=== PATIENT | female | born 1975 | race Caucasian/White ===

== ENCOUNTER → 2016-12-25 | Outpatient (CLI) | payer BC ==
--- NOTE | 2016-12-25 13:07 | Diagnostic Imaging Report ---
INDICATION: Shortness of breath. Portable chest at 11:56 a.m. FINDINGS: Heart size and pulmonary vascularity are normal. Lungs are clear. There are no effusions or pneumothoraces. IMPRESSION: Negative chest. Dictated by: Dictated on workstation # [id number]
== END ==
LOC: RAD 11:24
PROVIDERS: ATTEND Nurse Practitioner Family
DX: R06.02 Shortness of breath (principal)
CPT/HCPCS: 71010

== ENCOUNTER → 2017-07-08 | Outpatient (CLI) | payer BC | LOC: LAB 08:21 | PROVIDERS: ATTEND Obstetrics & Gynecology | DX: R73.02 Impaired glucose tolerance (oral) (principal) | CPT/HCPCS: 36415; 82951; 82952; 82962 ==

== ENCOUNTER 2017-07-29 06:00 | Inpatient (IN) | payer BC ==
[2017-07-29] VITALS (77 sets, daily range): BP systolic 104–167; BP diastolic 53–94
[~2017-07-29] VITALS: Ht 163.8 cm; Wt 90.8 kg
--- OUTSIDE RECORDS SUMMARY | 2017-07-29 06:18 | XMS REPORT | CCD ---
Author Author Auto Generated Organization 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
--- OUTSIDE RECORDS SUMMARY | 2017-07-29 06:18 | XMS REPORT | Continuity of Care Document ---
Author Author [employer] Organization [facility] Address Unknown Phone Unavailable Care Team Providers Care Framing Inspector Name Role Phone [employer] Unavailable Unavailable Problems Problem Status Onset Date Classification Date Reported Comments Source Congenital anomaly of fetus (disorder) Active 07/15/2017 Problem 07/16/2017 [facility] Abnormality of heart (disorder) Active 07/15/2017 Problem 07/16/2017 [facility] High risk (finding) Active 07/15/2017 Problem [facility] Patient currently (finding) Resolved 09/27/2000 Problem 07/16/2017 [facility] Medications Allergies, Adverse Reactions, Alerts Immunizations Results Order Name Results Value Reference Range Date Interpretation Comments Source Health Letter 07/15/2017 [facility] Health Ultrasound 07/15/2017 [facility] Vital Signs Encounters Location Location Details Encounter Type Encounter Number Reason For Visit Attending Provider ADM Date DC Date Status Source [facility] Non Billable [id number] 07/02/2017 07/02/2017 [facility] CLI [id number] Estevan Suero 07/15/2017 07/15/2017 [facility] Procedures Plan of Care Social History Assessment and Plan Family History Value Date Source Advance Directives Order Name Results Value Date Source
--- OUTSIDE RECORDS SUMMARY | 2017-07-29 06:19 | XMS REPORT ---
Author Author JESS MEHTA [facility] e[employer] Address Unknown Phone Unavailable Care Team Providers Care Developer Programmer Analyst Name Role Phone JESS MEHTA CP Unavailable Allergies, Adverse Reactions, Alerts Substance Reaction Event Type N.K.D.A. Info Not Available Non Drug Allergy Problems Problem Type Condition Code Onset Dates Condition Status Assessment Physical exam Z00.00 Active Problem Other disorder of menstruation and other abnormal bleeding from female genital tract 626.8 Active Problem Contact dermatitis and other eczema, due to unspecified cause 692.9 Active Assessment Encounter for immunization Z23 Active Assessment Tobacco abuse Z72.0 Active Problem Screening examination for venereal disease V74.5 Active Problem Screening examination for pulmonary tuberculosis V74.1 Active Problem Encounter for dental examination Z01.20 Active Problem Lymphadenitis, unspecified, except mesenteric 289.3 Active Problem Screening for malignant neoplasm of the cervix V76.2 Active Problem MMR DX V06.4 Active Problem Counseling on substance use and abuse V65.42 Active Medications Medication Code System Code Instructions Start Date End Date Status Dosage Gabapentin [facility] [address]-34 100 MG Orally 3 times a day prn elbow/back pain May 01, 2016 1 capsule Chantix Starting Month [place] [facility] [address]-15 0.5 MG X 11 & 1 MG X 42 Orally June 02, 2016 as directed Procedures Procedure Coding System Code Date SINGLE IMMUNIZATION ADMIN CPT-4 88029 June 02, 2016 Preventive Care Est Pt. Age 40-64 CPT-4 60905 June 02, 2016 HEP B (ADULT) CPT-4 18880 June 02, 2016 Vital Signs Date/Time: June 02, 2016 Cardiac Monitoring Heart Rate 80 bpm Weight 170.4 lbs Height 64 in BMI 29.25 Index Blood Pressure Diastolic 90 mmHg Blood Pressure Systolic 120 mmHg Results No Known Results Immunizations Vaccine Administration Date HEP B (ADULT) June 02, 2016 Summary Purpose [employer]ClinicalWorks Submission
--- OUTSIDE RECORDS SUMMARY | 2017-07-29 06:19 | XMS REPORT | Clinical Summary ---
Author Author [facility] Organization [facility] Address Unknown Phone Unavailable Care Team Providers Care Filer Repairer Name Role Phone PCP Unavailable Source Comments Some departments are not documenting in the electronic medical record. If you do not see the information that you expected, contact Release of Information in the Health Information Management department at [phone] for further assistance in locating additional records.[facility] Allergies Not on File Current Medications Not on file Active Problems Not on file Encounters Date Type Specialty Care Team Description 05/19/2017 Clinical High Risk Screening, , for Support malformation by ultrasound (Primary Dx) from Last 3 Months Social History Tobacco Use Types Packs/Day Years Used Date Never Assessed Sex Assigned at Date Recorded Not on file Last Filed Vital Signs Not on file Plan of Treatment Health Maintenance Due Date Last Done Comments PHYSICAL (COMPREHENSIVE) 1982 EXAM PERTUSSIS VACCINE 1986 TETANUS VACCINE 1992 CERVICAL CANCER SCREENING 2005 BREAST CANCER SCREENING 2015 INFLUENZA VACCINE 07/23/2017 Results * ULTRASOUND [facility] ORDER (05/19/2017) Specimen Performing Laboratory IN CLINIC from Last 3 Months
--- OUTSIDE RECORDS SUMMARY | 2017-07-29 06:19 | XMS REPORT ---
Author Author ALEENA PIERRE Organization [employer] Address Unknown Phone Unavailable Care Team Providers Care Die Machine Operator Name Role Phone ALEENA PIERRE CP Unavailable Allergies No Known Allergies Problems Problem Type Condition Code Onset Dates Condition Status Problem Contact dermatitis and other eczema, due to unspecified cause 692.9 Active Problem Screening for malignant neoplasm of the cervix V76.2 Active Problem Other disorder of menstruation and other abnormal bleeding from female genital tract 626.8 Active Assessment Encounter for immunization Z23 Active Problem Encounter for dental examination Z01.20 Active Problem Screening examination for venereal disease V74.5 Active Problem Anxiety F41.9 Active Problem Counseling on substance use and abuse V65.42 Active Problem Lymphadenitis, unspecified, except mesenteric 289.3 Active Problem Screening examination for pulmonary tuberculosis V74.1 Active Problem MMR DX V06.4 Active Medications No Known Medications Procedures Procedure Coding System Code Date SINGLE IMMUNIZATION ADMIN CPT-4 95675 Sep 03, 2016 FLUARIX QUAD P-FREE 3 AND UP .50 2015 CPT-4 09253 Sep 03, 2016 Results No Known Results Immunizations Vaccine Administration Date FLUARIX QUAD P-FREE 3 AND UP .50 2015Sep 03, 2016 Summary Purpose eClinicalWorks Submission
--- OUTSIDE RECORDS SUMMARY | 2017-07-29 06:19 | XMS REPORT ---
Author Author JESS MEHTA [facility] e[employer] Address Unknown Phone Unavailable Care Team Providers Care Shaker Tender Name Role Phone JESS MEHTA CP Unavailable Allergies No Known Allergies Problems Problem Type Condition Code Onset Dates Condition Status Problem Other disorder of menstruation and other abnormal bleeding from female genital tract 626.8 Active Problem Contact dermatitis and other eczema, due to unspecified cause 692.9 Active Problem Screening examination for venereal disease V74.5 Active Problem Screening examination for pulmonary tuberculosis V74.1 Active Problem Encounter for dental examination Z01.20 Active Problem Lymphadenitis, unspecified, except mesenteric 289.3 Active Problem Screening for malignant neoplasm of the cervix V76.2 Active Problem MMR DX V06.4 Active Problem Counseling on substance use and abuse V65.42 Active Medications No Known Medications Results No Known Results Summary Purpose eClinicalWorks Submission
--- OUTSIDE RECORDS SUMMARY | 2017-07-29 06:19 | XMS REPORT ---
Author Author ISAAC BRUNER [facility] [employer] Address Unknown Phone Unavailable Care Team Providers Care Malted Milk Mixer Name Role Phone ISAAC BRUNER CP Unavailable Allergies No Known Allergies Problems Problem Type Condition Code Onset Dates Condition Status Problem Contact dermatitis and other eczema, due to unspecified cause 692.9 Active Problem Screening for malignant neoplasm of the cervix V76.2 Active Problem Other disorder of menstruation and other abnormal bleeding from female genital tract 626.8 Active Assessment Anxiety F41.9 Active Problem Encounter for dental examination Z01.20 Active Problem Screening examination for venereal disease V74.5 Active Problem Anxiety F41.9 Active Problem Counseling on substance use and abuse V65.42 Active Problem Lymphadenitis, unspecified, except mesenteric 289.3 Active Problem Screening examination for pulmonary tuberculosis V74.1 Active Problem MMR DX V06.4 Active Medications No Known Medications Results No Known Results Summary Purpose eClinicalWorks Submission
--- OUTSIDE RECORDS SUMMARY | 2017-07-29 06:19 | XMS REPORT | Encounter Summary ---
Author Author [facility] Organization [facility] Address Unknown Phone Unavailable Care Team Providers Care Wood Hacker Name Role Phone PCP Unavailable Reason for Visit * Reason Comments Ultrasound Encounter Details Date Type Department Care Team Description 05/19/2017 Clinical [facility] Screening, , for Support Physicians [place] [address] ultrasound (Primary Dx) [place] [address] Social History Tobacco Use Types Packs/Day Years Used Date Never Assessed Sex Assigned at Date Recorded Not on file as of this encounter Progress Notes * Lucero Brown - 05/19/2017 11:15 AM CDT Pamella Petersen presents for an ultrasound encounter. Past Medical, Surgical, Family & Social History; Medications & Allergies contained in the electronic record below were not reviewed today and may not be up-to-date. Please see OBGYN report for all documentation related to this encounter. in this encounter Plan of Treatment Not on fileas of this encounter Results * ULTRASOUND [facility] ORDER (05/19/2017) Specimen Performing Laboratory IN CLINIC in this encounter Visit Diagnoses Diagnosis Screening, , for malformation by ultrasound - Primary Encounter for routine screening for malformation using ultrasonics in this encounter
[2017-07-29] MEDS ORDERED: D5 LR IV SOLUTION 1,000 ML IV ONE (06:27)
[2017-07-29] MEDS ORDERED: MISOPROSTOL 100 MCG (CYTOTEC) TAB PO ONE ×2 (06:45→21:30)
[2017-07-29] MEDS ORDERED: LACTATED RINGERS 1,000 ML IV SCH (06:45)
[2017-07-29] MEDS: D5 LR IV SOLUTION 1,000 ML IV SCH ×3 (06:55→23:03)
[2017-07-29 07:16] LABS: BASOPHILS % (AUTO) 0 % (0-10); EOSINOPHILS # (AUTO) 0.4 10^3/uL (0.0-0.3); EOSINOPHILS % (AUTO) 4 % (0-10); LYMPHOCYTES # (AUTO) 1.4 X 10^3 (1.0-4.0); LYMPHOCYTES % (AUTO) 15 % (12-44); MEAN CORPUSCULAR HEMOGLOBIN 32 PG (25-34); MEAN CORPUSCULAR HGB CONC 34 G/DL (32-36); MEAN CORPUSCULAR VOLUME 95 FL (80-99); MEAN PLATELET VOLUME 11.3 FL (7.4-10.4); MONOCYTES # (AUTO) 0.9 X 10^3 (0.0-1.0); MONOCYTES % (AUTO) 9 % (0-12); NEUTROPHILS # (AUTO) 7.2 X 10^3 (1.8-7.8); NEUTROPHILS % (AUTO) 73 % (42-75); PLATELET COUNT 238 10^3/uL (130-400); RED BLOOD COUNT 4.02 10^6/uL (4.35-5.85); RED CELL DISTRIBUTION WIDTH 12.6 % (10.0-14.5); WHITE BLOOD COUNT 9.8 10^3/uL (4.3-11.0)
[2017-07-29 07:46] LABS: ALANINE AMINOTRANSFERASE 20 U/L (0-55); ALBUMIN 3.5 GM/DL (3.2-4.5); ANION GAP 13 MMOL/L (5-14); ASPARTATE AMINO TRANSFERASE 17 U/L (5-34); BILIRUBIN,TOTAL 0.3 MG/DL (0.1-1.0); BLOOD UREA NITROGEN 5 MG/DL (7-18); BUN/CREATININE RATIO 9; CALCIUM 9.7 MG/DL (8.5-10.1); CARBON DIOXIDE 18 MMOL/L (21-32); CHLORIDE 109 MMOL/L (98-107); CREATININE SERUM 0.57 MG/DL (0.60-1.30); GFR ESTIMATED > 60; GLUCOSE 94 MG/DL (70-105); LACTATE DEHYDROGENASE 152 U/L (125-220); POTASSIUM 3.7 MMOL/L (3.6-5.0); SODIUM 140 MMOL/L (135-145); TOTAL PROTEIN 6.8 GM/DL (6.4-8.2)
[2017-07-29] MEDS ORDERED: SUFENTA 0.6MCG/ML BUPIVA 0.125 100 ML ONE ×2 (07:56→16:59)
[2017-07-29] MEDS ORDERED: fentaNYL INJECTION 100 MCG/2 ML AMP ONE (08:25)
[2017-07-29] MEDS: MISOPROSTOL 100 MCG (CYTOTEC) TAB PO SCH ×3 (11:28→18:46)
[2017-07-29] MEDS ORDERED: MISOPROSTOL 100 MCG (CYTOTEC) TAB PV ONE (17:00)
[2017-07-29] MEDS ORDERED: OXYTOCIN/NORMAL SALINE 500 ML IV ONE (17:35)
[2017-07-29] MEDS: OXYTOCIN/NORMAL SALINE 500 ML IV SCH (17:45)
[2017-07-29] MEDS ORDERED: LACTATED RINGERS 1,000 ML IV ONE (18:04)
[2017-07-29] MEDS ORDERED: diphenhydrAMINE 50 MG/ML INJ (BENADRYL) IV PRN (18:15)
[2017-07-29] MEDS ORDERED: NALOXONE 0.4 MG/ML 1 ML (NARCAN) VIAL IV PRN (18:15)
[2017-07-29] MEDS ORDERED: CATHETER FLUSH 10 ML SYR IV PRN (18:15)
[2017-07-29] MEDS ORDERED: ONDANSETRON 4 MG/2 ML (SDV) Z0FRAN IV PRN (18:15)
[2017-07-29] MEDS ORDERED: MISOPROSTOL 200 MCG (CYTOTEC) TABLET PV NR (18:15)
[2017-07-29] MEDS ORDERED: OXYTOCIN/NORMAL SALINE 500 ML IV SCH (18:53)
[2017-07-29] MEDS ORDERED: ACETAMINOPHEN 500 MG TAB (TYLENOL) PO ONE (21:30)
[2017-07-30] VITALS (88 sets, daily range): BP systolic 102–194; BP diastolic 52–112
[2017-07-30] MEDS: EPIDURAL (SUFENTA 0.6MCG/ML BUPIVA 0.125%) 100 ML BAG EPI SCH ×3 (01:13→16:34)
[2017-07-30] MEDS ORDERED: LORazepam INJ 2 MG/ML (ATIVAN) VIAL IVP PRN (02:30)
[2017-07-30] MEDS ORDERED: MISOPROSTOL 100 MCG (CYTOTEC) TAB PO ONE (02:30)
[2017-07-30] MEDS ORDERED: MISOPROSTOL 200 MCG (CYTOTEC) TABLET ONE (02:37)
[2017-07-30] MEDS: D5 LR IV SOLUTION 1,000 ML IV SCH ×2 (07:10→14:34)
[2017-07-30] MEDS ORDERED: LIDOCAINE PF 2% 5 ML (XYLOCAINE) VIAL ONE ×2 (09:17→12:45)
[2017-07-30] MEDS ORDERED: LABETALOL HCL 20 MG/4 ML VIAL ONE (10:08)
[2017-07-30] MEDS ORDERED: LABETALOL HCL 20 MG/4 ML VIAL IV NR ×2 (10:15→10:30)
--- NOTE | 2017-07-30 10:26 | Anesthesia-Regional Post-Op ---
Regional Significant Intra-Op Events Notes Pt still laboring. Having breakthrough pain since placement of bulb by OBGYN. Epidural bolus given, see notes. Will continue to follow. Post Op Complications Complications None Follow Up Care/Instructions Patient Instructions None needed. Anesthesia/Patient Condition Patient is doing well, no complaints, stable vital signs, no apparent adverse anesthesia problems. No complications reported per nursing. VIVI JUNE CRNA Jul 30, 2017 10:26
[2017-07-30] MEDS ORDERED: fentaNYL INJECTION 100 MCG/2 ML AMP ONE (12:01)
--- NOTE | 2017-07-30 12:23 | Progress Note-Standard ---
Standard Progress Note Progress Notes/Assess & Plan Time Seen by Provider: 11:50 Final Diagnosis 1150- 1216 100 mcg fentanyl given thru [place] cath. Pt johnna cates. CAROLIN ANDERSON CRNA Jul 30, 2017 12:23
[2017-07-30] MEDS ORDERED: BUPIVACAINE 0.25% 30 ML (SENSORCAINE) VIAL ONE (12:45)
--- NOTE | 2017-07-30 14:19 | Progress Note-Standard ---
Standard Progress Note Progress Notes/Assess & Plan Time Seen by Provider: 09:10 Final Diagnosis 0910- OB RN called stating laboring pt who had a active V[place] placed >24 hours was having breakthru pain. Discussed situation with pt and family at bedside, examined epidural site, dressing and pump. Epidural site and dressing were benign, dry and intact. Epidural cath and tubing were intact and indwelling. Pump settings and function were accurate and infusing. Bolused pt thru [place] cath with 10ml of 2% lidocaine, pt johnna well. Marlys Rendon CRNA followed up with pt as I was placing an V[place] in another pt. She reported pts pain was relieved and dermatome levels were assessed. CAROLIN ANDERSON CRNA Jul 30, 2017 14:19
[2017-07-30] MEDS: OXYTOCIN/NORMAL SALINE 500 ML IV SCH (14:34)
[2017-07-30] MEDS ORDERED: LIDOCAINE/EPI 2% 1:200,00 (XYLOCAINE) 10 ML VIAL ONE (16:32)
[2017-07-30] MEDS ORDERED: OXYTOCIN/NORMAL SALINE 500 ML IV SCH (17:30)
[2017-07-30] MEDS ORDERED: KETOROLAC 30 MG/ML VIAL IVP SCH (17:30)
--- NOTE | 2017-07-30 17:34 | OB Labor & Delivery Record ---
Vag Delivery Note Vag Delivery Note Date of Delivery: 07/30/17 Preoperative Diagnosis: Pamella Petersen is a 41 /Para 7 / 4,Gestational Age 35 weeks with demise. Known Trisomy 18. Postoperative Diagnosis: Same Surgeon: DIVYA WOOTEN Anesthesia: epidural Delivery Type: vaginal Findings: nonviable female infant, very edematous cord, baby with sloughing skin, weight 3#7oz. Copious amniotic fluid, stained. Lacerations: none Intact placenta with 3 vessel cord. Placenta extremely small. No nuchal cord, body cord or shoulder dystocia Estimated Blood Loss: 150 ml Complications: None Condition: Stable Description of Procedure: The patient is a 41 /Para 7 / 4,Gestational Age 35 weeks with demise. Known Trisomy 18 who presented for induction of labor. She was admitted and informed consent was obtained. Her labor course was remarkable for oral misoprostol x 3 doses and then vaginal placement. Epidural was placed at beginning of induction. After 24 hours Cook catheter placed (2 cm). Removed after 2 hours (5 cm), then epidural replaced (no longer functioning) and then AROM. Then quickly She progressed to complete dilatation and began to push. She was then set up for delivery. The baby delivered rapidly in 2 pushes and copious fluid. The cord was doubly clamped and cut and the was handed off to the pediatric staff. An intact placenta with 3-vessel cord delivered via Deo and there was found to be minimal bleeding.~ Vigorous fundal massage was performed and the fundus was found to be firm. IV oxytocin was given. Examination of the vagina and perineum revealed a no laceration. Mother stable. Baby taken to the nursery for evaluation. Vitals - Labs Vital Signs - I&O Vital Signs Date Time Temp Pulse Resp B/P (MAP) Pulse Ox O2 Delivery O2 Flow Rate FiO2 07/30/17 16:45 81 18 140/95 Room Air 07/30/17 16:30 89 18 194/93 Room Air 07/30/17 16:15 86 18 181/87 Room Air 07/30/17 16:00 102 18 153/102 Room Air 07/30/17 15:45 18 Room Air 07/30/17 15:30 98 18 169/74 Room Air 07/30/17 15:15 121 18 172/76 97 Room Air 07/30/17 15:00 98 18 156/63 97 Room Air 9/8/17 14:45 84 18 154/73 97 Room Air 9/8/17 14:30 81 18 157/72 97 Room Air 9/8/17 14:26 81 18 157/72 Room Air 9/8/17 14:15 87 18 158/71 97 Room Air 9/8/17 14:11 87 18 158/71 Room Air 9/8/17 14:00 104 18 124/82 97 Room Air 9/8/17 13:56 104 18 124/82 Room Air 9/8/17 13:45 93 18 167/87 97 Room Air 9/8/17 13:41 93 18 167/87 Room Air 9/8/17 13:30 90 18 139/80 94 Room Air 9/8/17 13:28 90 18 139/80 Room Air 9/8/17 13:23 89 18 140/63 Room Air 9/8/17 13:19 98 18 144/75 Room Air 9/8/17 13:16 91 18 152/69 Room Air 9/8/17 13:15 83 18 136/72 94 Room Air 9/8/17 13:13 85 18 136/72 Room Air 9/8/17 13:10 90 18 135/69 Room Air 9/8/17 13:07 94 18 151/78 Room Air 9/8/17 13:04 87 18 140/74 Room Air 9/8/17 13:02 90 18 137/76 Room Air 9/8/17 13:00 18 Room Air 9/8/17 12:45 85 18 153/68 96 Room Air 9/8/17 12:30 86 18 172/77 97 Room Air 9/8/17 12:15 84 18 179/93 97 Room Air 9/8/17 12:00 97 18 169/78 97 Room Air 9/8/17 11:45 72 18 172/79 98 Room Air 9/8/17 11:30 85 18 185/87 96 Room Air 9/8/17 11:15 99.9 96 18 142/67 96 Room Air 9/8/17 11:00 74 18 161/77 96 Room Air 9/8/17 10:45 86 18 154/72 95 Room Air 9/8/17 10:30 82 18 175/77 95 Room Air 9/8/17 10:23 100 18 175/80 94 Room Air 9/8/17 10:15 90 18 179/82 95 Room Air 9/8/17 10:10 94 18 180/112 96 9/8/17 10:03 87 18 194/94 96 9/8/17 10:00 93 18 184/90 95 Room Air 9/8/17 09:45 93 18 164/80 95 Room Air 9/8/17 09:30 94 18 147/65 96 Room Air 9/8/17 09:15 86 18 136/65 97 Room Air 9/8/17 09:00 83 18 130/61 95 Room Air 9/8/17 08:45 75 18 125/55 96 Room Air 9/8/17 08:30 64 18 117/57 97 Room Air 9/8/17 08:15 88 18 141/65 98 Room Air 9/8/17 08:00 71 18 129/60 98 Room Air 9/8/17 07:45 91 18 116/55 98 Room Air 9/8/17 07:30 99.2 67 18 116/55 96 Room Air 9/8/17 07:15 75 18 113/56 96 Room Air 9/8/17 07:00 91 18 110/56 96 Room Air 9/8/17 06:45 71 18 120/62 96 Room Air 9/8/17 06:30 62 18 118/61 97 Room Air 9/8/17 06:15 71 18 134/63 97 Room Air 9/8/17 06:00 99.5 72 18 132/65 98 Room Air 9/8/17 05:45 72 18 124/72 94 Room Air 9/8/17 05:30 54 18 141/65 96 Room Air 9/8/17 05:15 78 18 120/59 96 Room Air 9/8/17 05:00 76 18 122/64 96 Room Air 9/8/17 04:45 69 18 114/58 96 Room Air 9/8/17 04:30 68 18 123/61 98 Room Air 9/8/17 04:15 62 18 126/68 98 Room Air 9/8/17 04:00 73 18 121/63 98 Room Air 9/8/17 03:45 98.0 73 18 112/58 98 Room Air 9/8/17 03:30 76 18 116/61 98 Room Air 9/8/17 03:15 73 18 122/60 98 Room Air 9/8/17 03:00 64 18 127/68 98 Room Air 9/8/17 02:45 75 18 118/64 100 Room Air 9/8/17 02:30 61 18 109/55 100 Room Air 9/8/17 02:15 18 96 Room Air 9/8/17 02:00 61 18 115/55 95 Room Air 9/8/17 01:45 67 18 118/56 95 Room Air 9/8/17 01:30 64 18 125/62 96 Room Air 9/8/17 01:22 97.3 75 18 112/59 96 Room Air 9/8/17 01:00 83 18 160/75 97 Room Air 9/8/17 00:45 59 18 102/55 96 Room Air 9/8/17 00:30 60 18 109/56 96 Room Air 9/8/17 00:15 66 18 105/52 96 Room Air 9/8/17 00:00 74 18 111/65 96 Room Air 9/7/17 23:45 76 18 122/59 97 Room Air 9/7/17 23:30 68 18 107/53 97 Room Air 9/7/17 23:15 75 18 112/54 97 Room Air 9/7/17 23:00 80 18 104/62 97 Room Air 9/7/17 22:45 82 18 104/56 98 Room Air 9/7/17 22:30 79 18 129/67 98 Room Air 9/7/17 22:15 78 18 140/71 99 Room Air 9/7/17 22:00 98.4 86 18 111/58 98 Room Air 9/7/17 21:45 75 18 120/64 99 Room Air 9/7/17 21:30 71 18 112/53 99 Room Air 9/7/17 21:15 71 18 149/66 97 Room Air 9/7/17 21:05 82 18 158/74 97 Room Air 9/7/17 21:02 76 18 165/83 98 Room Air 9/7/17 21:00 86 18 165/93 98 Room Air 9/7/17 20:45 64 18 118/58 96 Room Air 9/7/17 20:30 64 18 122/56 99 Room Air 9/7/17 20:15 68 18 128/62 99 Room Air 9/7/17 20:00 75 18 138/62 99 Room Air 9/7/17 19:47 83 18 141/71 98 Room Air 07/29/17 19:28 98.4 80 18 142/57 99 Room Air 07/29/17 19:13 87 18 157/68 98 Room Air 07/29/17 19:00 79 18 138/65 98 Room Air 07/29/17 18:45 90 18 119/63 98 07/29/17 18:30 86 18 128/60 98 07/29/17 18:15 80 18 159/72 99 07/29/17 18:00 78 18 117/67 97 07/29/17 17:45 97.8 79 18 118/56 99 I & O 07/31/17 07:00 Intake Total 3100 ml Balance 3100 ml DIVYA WOOTEN DO Jul 30, 2017 17:34
[2017-07-30] MEDS ORDERED: IBUP-1773 PO (17:38)
--- NOTE | 2017-07-30 17:40 | Discharge Inst-Women's Service ---
Discharge Inst-Women's Serv Depart Medication/Instructions New, Converted or Re-Newed RX: Call to Patients Pharmacy Final Diagnosis demise trisomy 18 advanced maternal age Consults/Follow Up Additional Follow Up: Yes ([address] Wooten Wedpeter or Wednesday for BP check) Activity Activity: Activity as Tolerated Driving Instructions: You May Drive NO SMOKING: NO SMOKING Nothing Inside Vagina: No Douching, No [place], No Tampons Diet Discharge Diet: No Restrictions Symptoms to Report to : Swelling Increased, Bleeding Excessive, Pain Increased, Fever Over 101 Degrees F, Pain/Pressure in Chest, Pain/Pressure in Jaw, Vaginal Bleeding Increase, Vaginal Discharge Foul For Any Problems or Questions: Contact Your Physician DIVYA WOOTEN DO Jul 30, 2017 17:40
[2017-07-30] MEDS ORDERED: HYDROcodone/APAP 5 MG/325 MG (LORTAB) TAB ONE (22:31)
[2017-07-30] MEDS ORDERED: HYDROcodone/APAP 5 MG/325 MG (LORTAB) TAB PO ONE (22:45)
[2017-07-30] MEDS ORDERED: LORazepam 1 MG (ATIVAN) TAB PO ONE (22:45)
[2017-07-31] MEDS: IBUPROFEN 600 MG (MOTRIN) TAB PO SCH ×2 (00:42→08:29)
[2017-07-31] MEDS ORDERED: LORazepam 1 MG (ATIVAN) TAB ONE (03:04)
[2017-07-31 03:15] VITALS: BP 127/79
[2017-07-31] MEDS ORDERED: IBUPROFEN 600 MG (MOTRIN) TAB PO ONE ×2 (05:58→08:15)
[2017-07-31] MEDS ORDERED: FERROUS SULF 325 MG (IRON) TAB PO SCH (08:00)
[2017-07-31 08:32] VITALS: BP 156/88
[2017-07-31] MEDS ORDERED: ESCI10TA PO (10:41)
[2017-07-31] MEDS ORDERED: ALPR0.25 PO (10:41)
--- NOTE | 2017-07-31 10:42 | Discharge Summary ---
Diagnosis/Chief Complaint Date of Admission Jul 29, 2017 at 06:00 Date of Discharge Discharge Date: Jul 31, 2017 Admission Diagnosis Admission Diagnosis demise at 34 weeks trisomy 18, known advanced maternal age Discharge Diagnosis same anxiety Reason Hospital Visit Patient was admitted for induction of labor due to demise of unknown duration. Known anomalies due to trisomy 18. Discharge Summary Hospital Course Hospital Course Patient was admitted and misoprostol induction was begun. She finally had vaginal delivery on 07/30/17. This was uncomplicated. She did have an epidural and had replacement of this due to not working well and the catheter "falling out". Following delivery she was admitted to . She was allowed to hold the baby as long as she wanted but did not choose to do the cuddle cot. Labs done for DIC due to IUFD were negative. On pp day #1 she was complaining of severe anxiety and was started on Lexapro and Xanax. The Xanax to help with sleep and anxiety while the Lexapro was able to improve the symptoms. blood pressure were also labile though no medications were given for treatment Labs Procedures vaginal delivery epidural Discharge Physical Examination Allergies: Coded Allergies: No Known Drug Allergies (Unverified , 07/29/17) Vitals & I&Os 156/88 102 97 General Appearance: Alert, Mild Distress Respiratory: Clear to Auscultation, Normal Air Movement Psych/Mental Status: Other (anxious and depressed. ) Discussion & Recommendations see above Discharge Home Medications Reviewed and agree with Discharge Medication list on patient's Discharge Instruction sheet Condition at Discharge stable Instructions to Patient/Family Please see electronic discharge instructions given to patient. Clinical Quality Measures DVT/VTE Risk/Contraindication: Risk Factor Score Per Nursin RFS Level Per Nursing on Admit: 2=Moderate DIVYA WOOTEN DO Jul 31, 2017 10:42
== END 2017-07-31 11:00 | disposition home or self-care (01) | DRG 775 ==
LOC: LDRP 06:00 → UNDODISIN 07-30 15:20 → LDRP 07-30 21:40
PROVIDERS: ADMIT Obstetrics & Gynecology; ATTEND Obstetrics & Gynecology
PROC: 3E0P7GC Introduction of Other Therapeutic Substance into Female Reproductive, Via Natural or Artificial Opening (ICD-10-PCS; 2017-07-29)
PROC: 10E0XZZ Delivery of Products of Conception, External Approach (ICD-10-PCS; principal; 2017-07-30)
DX: O36.4XX0 Maternal care for intrauterine death, not applicable or unspecified (principal); Z3A.35 35 weeks gestation of pregnancy; Z37.1 Single stillbirth
CPT/HCPCS: 36415; 80053; 83615; 85025; 85379; 85384; 85610; 85730; 86850; 86900; 86901